=== PATIENT | female | born 1945 | race Caucasian/White ===

== ENCOUNTER → 2020-08-17 | Outpatient (CLI) | payer MEDICARE ==
[2020-08-17 08:16] VITALS: BP 139/71; PULSE 74; RESP 16; TEMP 98.2
--- NOTE | 2020-08-17 09:00 | P.GSHP ---
History of Present Illness H&P Date: 08/17/20 Chief Complaint: left breast cancer Rossi is a 74 year old white female seen in consultation for DR. Roberts regarding a left breast cancer. She felt at lump in her left breast about two months ago. She had a bilateral mammogram on 07-18-20 and this showed a 1.2 Cm left breast mass in the inner upper aspect. An ultrasound was done on addi same date which showed a 2.5 cm mass at 10 O Clock. A biopsy was done on 08-07-20 which was an invasive ductal carcinoma, ER/AZ positive, HER-2 negative. It has not changed in size since she noted it. In 2017 she had a stero biopsy done of the left breast which was negative for cancer. She also had a left breast open biopsy in her 30's which was negative for cancer. She has had no surgery on her right breast. Prior to the biopsy she had some minimal discomfort at the site of the nodularity, since the biopsy she has some ecchymosis in the breast. She did have swelling also after the biopsy which has decreased in size. [place] done and [id number]. Does not have any nipple discharge or skin changes. Caffeine:none nicotine: none flavio-bromine: occasional hormones: none Family History: mother: lung cancer smoker paternal aunt: ? type father: prostate cancer brother: prostate ancer Hormonal History: menarche: 16 G0 menopause: 53 BCP: none hormones: none Surgical History: bresat biopsy Medical History: shingles bladder infection Social History: smoke: none alcohol: none drugs: none - Constitutional Constitutional: Denies chills, Denies fever - EENT Comment: wears glasses Ears: bilateral: tinnitus Ears, nose, mouth and throat: Denies headache, Denies sore throat - Breasts Breasts: bilateral: as per HPI - Cardiovascular Cardiovascular: Denies chest pain, Denies shortness of breath - Respiratory Respiratory: Denies cough, Denies 7 - Gastrointestinal Gastrointestinal: Denies abdominal pain, Denies diarrhea, Denies nausea, Denies vomiting - Genitourinary (Female) Comment: UTI in recent past Genitourinary: Denies dysuria, Denies hematuria - Menstruation Menstruation: Reports postmenopausal - Musculoskeletal Comment: arthritis in hands - Integumentary Integumentary: Denies pruritus, Denies rash - Neurological Neurological: Denies numbness, Denies weakness - Psychiatric Psychiatric: Reports anxiety - Endocrine Endocrine: Denies fatigue, Denies weight change - Hematologic/Lymphatic Comment: low dose aspirin and vitamin E - Allergic/Immunologic Allergic/Immunologic: Reports as per HPI Medications and Allergies Home Medications Medication Instructions Recorded Confirmed Type Ascorbic Acid [Vitamin C] 1,000 mg PO BID 08/17/20 08/17/20 History Aspirin [Adult Low Dose Aspirin EC] 81 mg PO QAM 08/17/20 08/17/20 History Cholecalciferol [Vitamin D3 (25 25 mcg PO QAM 08/17/20 08/17/20 History Mcg = 1000 Iu)] Cyanocobalamin/Cobamamide [Vitamin 1 each SL DAILY 08/17/20 08/17/20 History B-12 5,000 Mcg Tab Sl] Vitamin E 1,000 unit PO QAM 08/17/20 08/17/20 History Allergies Allergy/AdvReac Type Severity Reaction Status Date / Time Sulfa (Sulfonamide Allergy Abdominal Unverified 08/17/20 07:33 Antibiotics) Pain Surgical - Exam BMI 22.2 - General well developed, well nourished, no distress - Eyes normal ocular movement - ENT normal pinna, normal nares - Neck no masses, trachea midline - Respiratory normal respiratory effort, clear to auscultation - Cardiovascular Rhythm: regular Heart Sounds: normal: S1, S2 - Abdomen Abdomen: soft, bowel sounds - Integumentary normal turgor - Neurologic no disoriented, no combative - Musculoskeletal normal gait - Psychiatric oriented to time, oriented to person, oriented to place, speech is normal, memory intact breast exam: BRA: 34B inspection: bilateral grade 2/3 ptosis palpation: Right breast: Multiple positional exam dense fibroglandular tissue fibrocystic disease no dominant masses or nodules of concern Right axilla: No adenopathy of concern Left breast: Multiple positional exam increased fullness at the 10 o'clock position approximately 2 cm in size, ecchymosis at site of biopsy, no evidence of infection, fibrocystic changes, no dominant masses or nodules of concern Left axilla: No adenopathy of concern Results Mammogram and ultrasound xrays examined with DR. Richard REview of medical records from Dr. Roberts Assessment and Plan Assessment: Impression: 1. [id number]-G2 left breast cancer 2. Very dense bilateral breast on mammogram 3. Abnormal left breast ultrasound 4. Family history of cancer Plan: 1. Breast MRI secondary to dense breast and unable to see lesion on mammogram in the left breast 2. presentation of case at tumor board 3. appointment with medical oncology 4. follow up after MRI CC: Dr. Roberts We have discussed the stage of the tumor which is a 1B, we have discussed treatment options of both the breast and the axilla. At this time the patient would prefer to have a lumpectomy if possible. She will be seen again following breast MRI and presentation of her case at tumor board. If possible I would like medical oncology to shrink the tumor prior to a lumpectomy secondary to the size of the tumor relative to her breast. Encounter 60 minutes, time spent in examination, review of records, and counselling.
== END ==
LOC: WWCWWP 07:15
PROVIDERS: ATTEND Surgery
DX: C50.912 Malignant neoplasm of unspecified site of left female breast (principal); Z17.0 Estrogen receptor positive status [ER+]; Z80.9 Family history of malignant neoplasm, unspecified

== ENCOUNTER → 2020-08-20 | Outpatient (CLI) | payer MEDICARE ==
--- NOTE | 2020-08-21 06:27 | BMR ---
EXAMINATION TYPE: MR breast BILAT wo/w con DATE OF EXAM: 08/20/2020 COMPARISON: Outside bilateral diagnostic 3-D mammogram July 18, 2020 BI-RADS 0. Outside left breas t ultrasound July 18, 2020 BI-RADS 4. HISTORY: Upper-inner quadrant of LT side-lump/mass, invasive ductal carcinoma on ultrasound-guided bi opsy July 31, 2020. TECHNIQUE: A series of fat and water weighted images in the long and short axis views of both breasts are obtained in conjunction with dynamic contrast MRI with subtraction technique. The patient was i njected with 5.0 mL intravenous Gadavist gadolinium contrast. Three-dimensional and additional post processing imaging is created on independent workstation and reviewed during official interpretation of this study. FINDINGS: Extremely dense fibroglandular tissue is redemonstrated throughout both breasts. T2 and STI R weighted images show no significant cystic change in either breast. There are symmetric prominent b ut subcentimeter benign-appearing bilateral axillary lymph nodes present on T1 nonfat saturated image s. Dynamic postcontrast imaging shows mild background enhancement. Delayed dynamic postcontrast imagi ng shows no suspicious internal mammary adenopathy. With regards to the right breast no suspicious skin thickening is seen. No pathologic enhancement or enhancing masses noted. The chest wall is intact. With regards to the left breast corresponding to mammogram and ultrasound and palpable abnormality th ere is 1.4 x 1.1 x 1.7 cm enhancing lesion subtraction series 701 image 428 and sagittal postcontrast series 704 image 273 at 10:00 position posterior depth with artifact from biopsy clip along the medi al anterior aspect that corresponds to recent biopsy-proven invasive ductal carcinoma. Computer measu rements 1.6 x 1.4 x 2.0 cm correlates slightly more accurate with recent ultrasound. There are some punctate areas of susceptibility artifact in the anterior outer aspect of left breast near nipple. There is additional more focal area of susceptibility artifact between 11 and 12:00 posi tion middle depth upper aspect left breast image 523 series 701. Dynamic postcontrast imaging shows s ome heterogeneous vague enhancement at this level. No definitive measurable lesion. More rim type enh ancement seen on delayed images measuring 1.2 x 0.9 cm image 21 series 801. I do not see correspondin g large dystrophic calcification on mammogram. Area of uncertain clinical significance. I would advis e targeted ultrasound evaluation, if negative would presume benign. No abnormal skin thickening is present. Chest wall is intact. Small size hiatal hernia is incidentally appreciated. IMPRESSION: Biopsy-proven malignancy left breast. Second area of concern left breast as noted above w arrants ultrasound evaluation. No MRI evidence for invasive malignancy right breast. No abnormal cass opathy clearly identified. BI-RADS 2 benign findings right breast BI-RADS 6 biopsy-proven cancer left breast. Recommendation: Ultrasound evaluation B zone 11 to 12:00 position to rule out second lesion, if negat jonh can proceed with surgical management of single biopsy-proven malignancy left breast.
== END | disposition home or self-care (01) ==
LOC: RADMRIMAIN 16:21
PROVIDERS: ATTEND Surgery
DX: C50.212 Malignant neoplasm of upper-inner quadrant of left female breast (principal)
CPT/HCPCS: C8937; C8908; A9585; 77049

== ENCOUNTER → 2020-08-31 | Outpatient (CLI) | payer MEDICARE ==
--- NOTE | 2020-09-03 14:21 | USB ---
Reason for exam: additional evaluation requested from prior study. History: Patient has history of breast cancer at age 74. Malignant ultrasound-guided core biopsy of the left breast, July 2020. Physical Findings: Nurse Summary: 1.5cm firm, fixed lump left breast 10 o'clock, bruising left lower inner quadrant from biopsy (nurse mj). US Breast Limited LT Left limited breast ultrasound including focal area of concern, retroareolar and axilla demonstrates a 0.5 x 0.3 x 0.8cm oval, hypoechoic to anechoic lesion at 11 o'clock and a 0.9 x 0.7 x 1.2cm oval, solid lesion at 11 o'clock. 10 o'clock biopsy proved cancer. These results were verbally communicated with the patient and result sheet given to the patient on 08/31/20. ASSESSMENT: Suspicious, BI-RAD 4 RECOMMENDATION: Ultrasound core biopsy of the left breast. Called office with mammographic findings and has scheduled an appointment for the patient for 09/28/20 at 11:[address] Salinas. Biopsy scheduled for 09/13/20 at 1:00. PRELIMINARY REPORT CALLED AND FAXED TO DR. SALINAS ON 09/03/20.
== END | disposition home or self-care (01) ==
LOC: RADUSWWP 13:44
PROVIDERS: ATTEND Surgery
DX: C50.212 Malignant neoplasm of upper-inner quadrant of left female breast (principal)

== ENCOUNTER → 2020-09-13 | Day surgery (SDC) | payer MEDICARE ==
[2020-09-13 12:14] VITALS: RESP 16
[2020-09-13 13:55] VITALS: BP 137/68; PULSE 80; TEMP 98.2
--- NOTE | 2020-09-13 14:23 | USB ---
EXAMINATION TYPE: US biopsy breast VAD LT DATE OF EXAM: 09/13/2020 CLINICAL HISTORY: C50.412 Malignant neoplasm of left breast. TECHNIQUE: Ultrasound guided vaccuum assisted core biopsy of left breast. COMPARISON: 08/31/2020 FINDINGS: The ultrasound guided core biopsy procedure was explained to the patient. The risks, benefits, alternatives were discussed. An informed consent was then obtained. Timeout was performed. The patient was placed in supine positioning for imaging and for the procedure. The overlying skin was prepped with betadine and sterilely draped in usual sterile fashion. Lidocaine 1% was used as anesthetic into the skin and deeper breast tissue up to area of concern in the breast. A small skin elizabeth was made with surgical scalpel. Under ultrasound guidance, a 12-gauge vacuum assisted biopsy device was used to obtain 4 core samples. Celeros was utilized. A biopsy clip was left in lesion. Coil clip was placed. Good hemostasis was obtained with direct pressure. Discharge instructions were discussed with the patient. The patient will follow up with the referring physician for results. Postprocedure mammogram: The patient was transferred to mammography for physician ordered post procedure mammogram for clip placement verification. The clip is in the expected region of the biopsy. The patient tolerated the procedure well without any immediate complication. The patient was discharged to home in stable condition. IMPRESSION: 1. Successful ultrasound guided biopsy left breast. Recommendations: 1. Recommendations are pending pathology results. Pathology Results: Malignant LEFT BREAST, ELEVEN O'CLOCK, CORE BIOPSY: Invasive ductal carcinoma, Grade 2 (see Surgical Pathology Cancer Case Summary and comment). Recommendation Surgical consult of the left breast. BROOKE
--- NOTE | 2020-09-13 14:23 | MM ---
EXAMINATION TYPE: US biopsy breast VAD LT DATE OF EXAM: 09/13/2020 CLINICAL HISTORY: C50.412 Malignant neoplasm of left breast. TECHNIQUE: Ultrasound guided vaccuum assisted core biopsy of left breast. COMPARISON: 08/31/2020 FINDINGS: The ultrasound guided core biopsy procedure was explained to the patient. The risks, benef its, alternatives were discussed. An informed consent was then obtained. Timeout was performed. The patient was placed in supine positioning for imaging and for the procedure. The overlying skin w as prepped with betadine and sterilely draped in usual sterile fashion. Lidocaine 1% was used as ane sthetic into the skin and deeper breast tissue up to area of concern in the breast. A small skin yasmany k was made with surgical scalpel. Under ultrasound guidance, a 12-gauge vacuum assisted biopsy device was used to obtain 4 core samples . Celeros was utilized. A biopsy clip was left in lesion. Coil clip was placed. Good hemostasis was obtained with direct pressure. Discharge instructions were discussed with the pa lynda. The patient will follow up with the referring physician for results. Postprocedure mammogram: The patient was transferred to mammography for physician ordered post proced ure mammogram for clip placement verification. The clip is in the expected region of the biopsy. The patient tolerated the procedure well without any immediate complication. The patient was dischar ged to home in stable condition. IMPRESSION: 1. Successful ultrasound guided biopsy left breast. Recommendations: 1. Recommendations are pending pathology results.
== END ==
LOC: RADUSWWP 11:59
PROVIDERS: ATTEND Surgery
DX: C50.412 Malignant neoplasm of upper-outer quadrant of left female breast (principal); Z17.0 Estrogen receptor positive status [ER+]
CPT/HCPCS: 88305; 88342; 88341; 77065; 19083; A4648; J2001

== ENCOUNTER → 2020-09-28 | Outpatient (CLI) | payer MEDICARE ==
[2020-09-28 11:34] VITALS: BP 147/74; PULSE 65; RESP 18; TEMP 97.7
--- NOTE | 2020-09-28 11:54 | P.PN ---
Subjective Progress Note Date: 09/28/20 Principal diagnosis: left breast cancer; multifocal disease; [id number]+Her2-G2 Rossi is a 74 year old white female seen in consultation for DR. Roberts in august regarding a left breast cancer. She felt at lump in her left breast about two months prior to that. She had a bilateral mammogram on 07-18-20 and this showed a 1.2 cm left breast mass in the inner upper aspect. An ultrasound was done on the same date which showed a 2.5 cm mass at 10 O Clock. A biopsy was done on 08-07-20 which was an invasive ductal carcinoma, ER/WA positive, HER-2 negative. It has not changed in size since she noted it. In 2016 she had a stero biopsy done of the left breast which was negative for cancer. She also had a left breast open biopsy in her 30's which was negative for cancer. She has had no surgery on her right breast. Prior to the biopsy she had some minimal discomfort at the site of the nodularity, since the biopsy she has some ecchymosis in the breast. She did have swelling also after the biopsy which has decreased in size. The biopsy was done on . She did not have any nipple discharge or skin changes. A breast MRI was done on 08-20-20. With regards to the right breast pathologic enhancement or enhancing masses were noted. With respect to the left breast a 1.4 x 1.7 cm enhancing lesion was noted at the 10 o'clock position posterior depth which had been biopsied prior was proven to be an invasive ductal carcinoma. There also noted to be some punctate areas of susceptibility artifact in the anterior outer aspect of the left breast. Additionally a 1.2 cm lesion was noted for which target ultrasound was recommended and biopsy recommended in the 11 to 12 o'clock position. The patient did undergo ultra sound for biopsy of the area of concern noted on MRI and 4120. This was positive for invasive ductal carcinoma as well. She has no complaints related to this. Had an appetite performed on the tumor and the Oncotype results were 28. She has been seen by medical oncology and the notes are reviewed; and she is going to undergo neoadjuvant chemotherapy. She is going to undergo TC. She will like to wait until after school is over and will start this the second week of October. She will have TC every 3 weeks for 4 cycles and nulesta after each cycle. Caffeine:none nicotine: none flavio-bromine: occasional hormones: none Family History: mother: lung cancer smoker paternal aunt: ? type father: prostate cancer brother: prostate ancer Hormonal History: menarche: 16 G0 menopause: 53 BCP: none hormones: none Surgical History: bresat biopsy Medical History: shingles bladder infection Social History: smoke: none alcohol: none drugs: none - Constitutional Constitutional: Denies chills, Denies fever - EENT Comment: wears glasses Ears: bilateral: tinnitus Ears, nose, mouth and throat: Denies headache, Denies sore throat - Breasts Breasts: bilateral: as per HPI - Cardiovascular Cardiovascular: Denies chest pain, Denies shortness of breath - Respiratory Respiratory: Denies cough - Gastrointestinal Gastrointestinal: Denies abdominal pain, Denies diarrhea, Denies nausea, Denies vomiting - Genitourinary (Female) Comment: UTI in recent past Genitourinary: Denies dysuria, Denies hematuria - Menstruation Menstruation: Reports postmenopausal - Musculoskeletal Comment: arthritis in hands - Integumentary Integumentary: Denies pruritus, Denies rash - Neurological Neurological: Denies numbness, Denies weakness - Psychiatric Psychiatric: Reports anxiety - Endocrine Endocrine: Denies fatigue, Denies weight change - Hematologic/Lymphatic Comment: low dose aspirin and vitamin E - Allergic/Immunologic Allergic/Immunologic: Reports as per HPI Objective - Vital Signs Vital signs: Vital Signs Temp 97.7 F 09/28/20 11:29 Pulse 65 09/28/20 11:29 Resp 18 09/28/20 11:29 BP 147/74 09/28/20 11:29 Pulse Ox 100 09/28/20 11:29 Intake & Output 09/27/20 09/28/20 09/28/20 18:59 06:59 18:59 Weight 47.627 kg - Constitutional General appearance: Present: average body habitus - EENT Eyes: Present: EOMI ENT: Present: hearing grossly normal - Neck Neck: Present: normal ROM - Respiratory Respiratory: bilateral: CTA - Cardiovascular Rhythm: regular Heart sounds: normal: S1, S2 - Integumentary Integumentary Comment(s): Achymosis lateral aspect of the left breast, small hematoma near biopsy site, no evidence of infection Integumentary: Present: normal turgor - Psychiatric Psychiatric: Present: A&O x's 3 Assessment and Plan Assessment: Impression: 1. left breast multifocal cancer 2. patient to have pre-op chemotherpay Plan: 1. pre-op chemotherapy 2. follow up in 1 1/2 months CC: Dr. Roberts
== END ==
LOC: WWCWWP 11:15
PROVIDERS: ATTEND Surgery
DX: C50.212 Malignant neoplasm of upper-inner quadrant of left female breast (principal); F41.9 Anxiety disorder, unspecified

== ENCOUNTER → 2020-11-30 | Outpatient (CLI) | payer MEDICARE ==
--- NOTE | 2020-11-30 15:45 | P.PN ---
Subjective Progress Note Date: 11/30/20 Principal diagnosis: invasive ductal left breast cancer left breast cancer; multifocal disease; [id number]+Her2-G2 Rossi is a 75 year old white female seen in consultation for DR. Roberts in august regarding a left breast cancer. She felt at lump in her left breast about two months prior to that. She had a bilateral mammogram on 07-18-20 and this showed a 1.2 cm left breast mass in the inner upper aspect. An ultrasound was done on the same date which showed a 2.5 cm mass at 10 O Clock. A biopsy was done on 08-07-20 which was an invasive ductal carcinoma, ER/MD positive, HER-2 negative. In 2016 she had a stero biopsy done of the left breast which was negative for cancer. She also had a left breast open biopsy in her 30's which was negative for cancer. She has had no surgery on her right breast. Prior to the biopsy she had some minimal discomfort at the site of the nodularity, since the biopsy she has some ecchymosis in the breast. She did have swelling also after the biopsy which has decreased in size. The biopsy was done on . She did not have any nipple discharge or skin changes. A breast MRI was done on 08-20-20. With regards to the right breast pathologic enhancement or enhancing masses were noted. With respect to the left breast a 1.4 x 1.7 cm enhancing lesion was noted at the 10 o'clock position posterior depth which had been biopsied prior was proven to be an invasive ductal carcinoma. There also noted to be some punctate areas of susceptibility artifact in the anterior outer aspect of the left breast. Additionally a 1.2 cm lesion was noted for which target ultrasound was recommended and biopsy recommended in the 11 to 12 o'clock position. The patient did undergo ultra sound for biopsy of the area of concern noted on MRI and 4120. This was positive for invasive ductal carcinoma as well. She has no complaints related to this. She had an oncotype performed on the tumor and the Oncotype results were 28. She has been seen by medical oncology and the notes are reviewed; and she is going to undergo neoadjuvant chemotherapy. She is going to undergo TC. She will like to wait until after school is over and will start this the second week of October. She will have TC every 3 weeks for 4 cycles and nulesta after each cycle. The patient states the Dr. Rubin has noticed that the tumors are shrinking. She has 2 more courses of chemotherapy[place] [address]. She also developed thrush on the treatment which has resolved at this [place] [id number] reviewed Caffeine:none nicotine: none flavio-bromine: occasional hormones: none Family History: mother: lung cancer smoker paternal aunt: ? type father: prostate cancer brother: prostate ancer Hormonal History: menarche: 16 G0 menopause: 53 BCP: none hormones: none Surgical History: breast biopsy Medical History: shingles bladder infection Social History: smoke: none alcohol: none drugs: none - Constitutional Constitutional: Denies chills, Denies fever - EENT Comment: wears glasses Ears: bilateral: tinnitus Ears, nose, mouth and throat: Denies headache, Denies sore throat - Breasts Breasts: bilateral: as per HPI - Cardiovascular Cardiovascular: Denies chest pain, Denies shortness of breath - Respiratory Respiratory: Denies cough - Gastrointestinal Gastrointestinal: Denies abdominal pain, Denies diarrhea, Denies nausea, Denies vomiting - Genitourinary (Female) Comment: UTI in recent past Genitourinary: Denies dysuria, Denies hematuria - Menstruation Menstruation: Reports postmenopausal - Musculoskeletal Comment: arthritis in hands - Integumentary Integumentary: Denies pruritus, Denies rash - Neurological Neurological: Denies numbness, Denies weakness - Psychiatric Psychiatric: Reports anxiety - Endocrine Endocrine: Denies fatigue, Denies weight change - Hematologic/Lymphatic Comment: low dose aspirin and vitamin E - Allergic/Immunologic Allergic/Immunologic: Reports as per HPI Objective - Vital Signs Vital signs: Intake & Output 11/29/20 11/30/20 11/30/20 18:59 06:59 18:59 Weight 48.988 kg - Exam BMI 23.4 - Constitutional General appearance: Present: average body habitus - EENT Eyes: Present: EOMI ENT: Present: hearing grossly normal - Neck Neck: Present: normal ROM - Respiratory Respiratory: bilateral: CTA - Cardiovascular Rhythm: regular Heart sounds: normal: S1, S2 - Gastrointestinal General gastrointestinal: Present: soft - Integumentary Integumentary: Present: normal turgor - Musculoskeletal Musculoskeletal: Present: gait normal - Psychiatric Psychiatric: Present: A&O x's 3, appropriate affect, intact judgment & insight - Additional findings Additional findings: Breast Exam: Bra: 36B inspection: bilateral grade 2/3 ptosis palpation: right breast: Multi-positional exam fibrocystic changes, no dominant masses or nodules of concern Right axilla: No adenopathy of concern Left breast: Mass 12:00 in the upper outer quadrant no longer feels attached to the pectoralis muscle appears to be smaller in size, no other dominant masses or nodules of concern Left axilla: No adenopathy of concern Assessment and Plan Assessment: Impression: 1. left breast multifocal cancer/ [id number]+Her2-G2 Plan: 1. Patient is scheduled for a left breast mastectomy on 2420 2. Medical clearance from Dr. Roberts 3. Patient to follow up here 01-24-21 4. Complete chemotherapy 5. Follow up sooner if any questions or concerns Cc: Dr. Roberts
[2020-11-30 15:50] VITALS: BP 150/71; PULSE 76; RESP 18; TEMP 98.4
== END ==
LOC: WWCWWP 14:58
PROVIDERS: ATTEND Surgery
DX: C50.912 Malignant neoplasm of unspecified site of left female breast (principal); Z17.0 Estrogen receptor positive status [ER+]; Z88.2 Allergy status to sulfonamides

== ENCOUNTER → 2021-01-16 | Outpatient (CLI) | payer MEDICARE ==
--- NOTE | 2021-01-22 11:37 | MM ---
Reason for exam: follow-up at short interval from prior study. Last mammogram was performed 4 months ago. History: Patient has history of breast cancer at age 74, history of other cancer, and is nulliparous. Malignant US biopsy breast VAD LT of the left breast, September 13, 2020. Malignant ultrasound-guided core biopsy of the left breast, July 2020. Benign excisional biopsy of the right breast, 2017. Benign excisional biopsy of the left breast. Physical Findings: Nurse Summary: 2cm nodule in the left breast at 9 o'clock and 11 o'clock (nurse db). MG 3D Diag Mammo W/Cad LT CC, MLO, and XCCL view(s) were taken of the left breast. Prior study comparison: September 13, 2020, left breast MG diagnostic mammo LT wo CAD. July 31, 2020, mammogram. July 18, 2020, mammogram. The breast tissue is extremely dense which could obscure a lesion on mammography. Previous mammotome biopsy in the left breast x 2. Patient's known cancers x 2 not identified. No significant new findings when compared with previous films. These results were verbally communicated with the patient and result sheet given to the patient on 01/16/21. ASSESSMENT: Incomplete: need additional imaging evaluation, BI-RAD 0 RECOMMENDATION: Ultrasound of the left breast. Manage patient on a clinical basis.
--- NOTE | 2021-01-22 11:40 | USB ---
Reason for exam: follow-up at short interval from prior study. History: Patient has history of breast cancer at age 74, history of other cancer, and is nulliparous. Malignant US biopsy breast VAD LT of the left breast, September 13, 2020. Malignant ultrasound-guided core biopsy of the left breast, July 2020. Benign excisional biopsy of the right breast, 2017. Benign excisional biopsy of the left breast. US Breast LT Left complete breast ultrasound includes all four quadrants, the retroareolar region and axilla. Finding demonstrates a 0.6 x 0.6 x 0.8cm known cancer, coil clip at 10 o'clock. 11 o'clock area not identified. These results were verbally communicated with the patient and result sheet given to the patient on 01/16/21. ASSESSMENT: Suspicious, BI-RAD 4 RECOMMENDATION: Surgical consultation of the left breast. (known cancer x 2) Called office with mammographic findings and has scheduled an appointment for the patient for 01/24/21 at 11:[address] Salinas. Biopsy scheduled for 01/29/21 at 10:30. PRELIMINARY REPORT CALLED AND FAXED TO DR. SALINAS ON 01/22/21.
== END | disposition home or self-care (01) ==
LOC: RADMAMWWP 13:31
PROVIDERS: ATTEND Surgery
DX: C50.212 Malignant neoplasm of upper-inner quadrant of left female breast (principal)
CPT/HCPCS: 77065; 76641; G0279; 77061

== ENCOUNTER → 2021-01-24 | Outpatient (CLI) | payer MEDICARE ==
[2021-01-24 11:59] VITALS: BP 140/58; PULSE 74; RESP 14; TEMP 98.2
--- NOTE | 2021-01-24 12:31 | P.PN ---
Subjective Progress Note Date: 01/24/21 Principal diagnosis: stage 1A left breast cancer invasive ductal left breast cancer left breast cancer; multifocal disease; [id number] Rossi is a 75 year old white female seen in consultation for DR. Roberts in august regarding a left breast cancer. She felt at lump in her left breast about two months prior to that. She had a bilateral mammogram on 07-18-20 and this showed a 1.2 cm left breast mass in the inner upper aspect. An ultrasound was done on the same date which showed a 2.5 cm mass at 10 O Clock. A biopsy was done on 08-07-20 which was an invasive ductal carcinoma, ER/OK positive, HER-2 negative. In 2016 she had a stero biopsy done of the left breast which was negative for cancer. She also had a left breast open biopsy in her 30's which was negative for cancer. She has had no surgery on her right breast. Prior to the biopsy she had some minimal discomfort at the site of the nodularity, since the biopsy she has some ecchymosis in the breast. She did have swelling also after the biopsy which has decreased in size. The biopsy was done on . She did not have any nipple discharge or skin changes. A breast MRI was done on 08-20-20. With regards to the right breast no pathologic enhancement or enhancing masses were noted. With respect to the left breast a 1.4 x 1.7 cm enhancing lesion was noted at the 10 o'clock position posterior depth which had been biopsied prior was proven to be an invasive ductal carcinoma. There also noted to be some punctate areas of susceptibility artifact in the anterior outer aspect of the left breast. Additionally a 1.2 cm lesion was noted for which target ultrasound was recommended and biopsy recommended in the 11 to 12 o'clock position. The patient did undergo ultra sound for biopsy of the area of concern noted on MRI and 4120. This was positive for invasive ductal carcinoma as well. She has no complaints related to this. She had an oncotype performed on the tumor and the Oncotype results were 28. She has been seen by medical oncology and the notes are reviewed; and she is going to undergo neoadjuvant chemotherapy. She is going to undergo TC. She will like to wait until after school is over and will start this the second week of October. She will have TC every 3 weeks for 4 cycles and nulesta after each cycle. The patient states the Dr. Rubin has noticed that the tumors are shrinking. She has 2 more courses of chemotherapy. She was started on TC on . She also developed thrush on the treatment which has resolved at this time. Note from Dr. Rubin on 01-09-21 reviewed; at that time there was some concern that the patient may also have a lymphoblastic lymphoma versus a Walderstrom macroglobulinemia, this was secondary to significantly elevated IgM Monoclonal protein. The patient's last chemotherapy infusion was on December 24. Hemoglobin: 10, white blood cell count: 12.7, platelet count 236 this is blood work from [id number] On 01-17-21 noted a swelling about the gumline on the right side. This became progressively swollen including her cheek and/that she could not open her eyes to see. She was seen by the dentist on [id number] and given a prescription for Augmentin. She had a partial cleaning that day as well. She was told she has an abscess. She continues to have swelling of the right side of her face however this has decreased. She is presently on antibiotic therapy this will not be completed and tell Thursday of next week. She did have a left breast ultrasound performed on which revealed a 0.6 x 0.8 known carcinoma at the 10 o'clock position 11:00 area was not noted; it was felt that the tumor had decreased in size secondary to the neoadjuvant chemotherapy. She also had a left breast mammogram done showing the breast tissue to be extremely dense. Caffeine:none nicotine: none flavio-bromine: occasional hormones: none Family History: mother: lung cancer smoker paternal aunt: ? type father: prostate cancer brother: prostate ancer Hormonal History: menarche: 16 G0 menopause: 53 BCP: none hormones: none Surgical History: breast biopsy Medical History: shingles bladder infection Social History: smoke: none alcohol: none drugs: none - Constitutional Constitutional: Denies chills, Denies fever - EENT Comment: wears glasses Ears: bilateral: tinnitus Ears, nose, mouth and throat: Denies headache, Denies sore throat - Breasts Breasts: bilateral: as per HPI - Cardiovascular Cardiovascular: Denies chest pain, Denies shortness of breath - Respiratory Respiratory: Denies cough - Gastrointestinal Gastrointestinal: Denies abdominal pain, Denies diarrhea, Denies nausea, Denies vomiting - Genitourinary (Female) Comment: UTI in recent past Genitourinary: Denies dysuria, Denies hematuria - Menstruation Menstruation: Reports postmenopausal - Musculoskeletal Comment: arthritis in hands - Integumentary Integumentary: Denies pruritus, Denies rash - Neurological Neurological: Denies numbness, Denies weakness - Psychiatric Psychiatric: Reports anxiety - Endocrine Endocrine: Denies fatigue, Denies weight change - Hematologic/Lymphatic Comment: low dose aspirin and vitamin E - Allergic/Immunologic Allergic/Immunologic: Reports as per HPI Objective - Vital Signs Vital signs: Vital Signs Temp 98.2 F 01/24/21 11:56 Pulse 74 01/24/21 11:56 Resp 14 01/24/21 11:56 BP 140/58 01/24/21 11:56 Pulse Ox 97 01/24/21 11:56 Intake & Output 01/23/21 01/24/21 01/24/21 18:59 06:59 18:59 Weight 48.988 kg - Constitutional General appearance: Present: cooperative - EENT ENT: Present: hearing grossly normal - Respiratory Respiratory: bilateral: CTA - Cardiovascular Heart sounds: normal: S1, S2 - Integumentary Integumentary Comment(s): swollen right cheek/tender - Musculoskeletal Musculoskeletal: Present: gait normal - Psychiatric Psychiatric: Present: A&O x's 3, appropriate affect, intact judgment & insight Assessment and Plan Assessment: Impression: shingles bladder infection left breast multifocal cancer/completed neoadjuvant chemotherapy 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 discussed the case with her dentist he is going to see her next week she is going to complete her antibiotic course and there is a question whether the tooth will need to be pulled or not 2. Left mastectomy with sentinel node biopsy, sentinel node mapping left side, possible axillary node dissection 3. Secondary to the abscess in her tooth the surgery will be postponed Cc: Dr. Roberts
== END | disposition home or self-care (01) ==
LOC: WWCWWP 11:48
PROVIDERS: ATTEND Surgery
DX: Z53.9 Procedure and treatment not carried out, unspecified reason (principal)

== ENCOUNTER → 2021-02-08 | Outpatient (CLI) | payer MEDICARE ==
[2021-02-08 13:06] VITALS: BP 112/65; PULSE 65; RESP 18; TEMP 98.4
--- NOTE | 2021-02-08 13:48 | P.PN ---
Progress Note - Text Progress Note Date: 02/08/21 Rossi had some questions regarding a contralateral prophylactic mastectomy. I have gone over the risks and benefits with her and her friend. At this time I do not see that there is a survival benefit but there is an increased risk of postoperative complications. After thorough discussion lasting approximately 20 minutes she has decided to forgo the contralateral mastectomy.
== END | disposition home or self-care (01) ==
LOC: WWCWWP 12:23
PROVIDERS: ATTEND Surgery
DX: Z53.9 Procedure and treatment not carried out, unspecified reason (principal)

== ENCOUNTER 2021-02-19 11:33 | Observation (INO) | payer MEDICARE ==
[2021-02-11 18:18] VITALS: BMI 22.1
[~2021-02-19 11:33] MED LIST: HEPARIN SODIUM,PORCINE/PF 5,000 UNIT/0.5 ML SYRINGE SQ PRN; HYDROmorphone 0.5 MG/0.5 ML SYRINGE IVP PRN; LACTATED RINGERS 1,000 ML IV SCH; LIDOCAINE 1% (10MG/ML) FOR IV START INTRADERMA PRN; ONDANSETRON 4 MG/2 ML VIAL IVP ONE; Pre Op ABX Message 1 EACH MISC MISCELLANE ONE
[2021-02-19] MEDS ORDERED: ALPRAZolam 0.25 MG TAB ONE (12:32)
[2021-02-19] MEDS ORDERED: MIDAZOLAM 2 MG/2 ML VIAL IVP ONE (12:59)
--- NOTE | 2021-02-19 13:40 | P.NAPBC ---
NAPBC Queries - NAPBC Queries Was patient's case review presented at [facility] tumor board? If no, comment.: Yes Was patient's pathology reviewed at [facility]? If no, comment.: Yes Was breast conservation surgery offered? If no, comment.: No (multifocal disease) Was sentinel node biopsy offered? If no, comment.: Yes ( patient status post neoadjuvant therapy and will use dual tracer) Was diagnosis confirmed by percutaneous core biopsy? If no, comment.: Yes Is patient mastectomy patient?: Yes Was a preop referral to reconstructive surgeon offered?: No Clinical Stage: stage IA multifocal left breast cancer
[2021-02-19] MEDS ORDERED: ceFAZolin 1,000 MG VIAL ONE (14:04)
[2021-02-19] MEDS ORDERED: SODIUM CHLORIDE 0.9% 100 ML BAG ONE (14:04)
[2021-02-19] MEDS ORDERED: fentaNYL (PF) 50 MCG/ML 2 ML AMP ONE (14:04)
[2021-02-19] MEDS ORDERED: SUCCINYLCHOLINE CHLORIDE 100 MG/5 ML SYR IV ONE (14:04)
[2021-02-19] MEDS ORDERED: MIDAZOLAM 2 MG/2 ML VIAL ONE (14:04)
[2021-02-19] MEDS ORDERED: PROPOFOL 10 MG/ML 20 ML VIAL IV ONE (14:04)
[2021-02-19] MEDS ORDERED: METHYLENE BLUE 10 MG/ML (10 ML VIAL) INJ ONE (15:01)
--- NOTE | 2021-02-19 15:22 | NM ---
EXAMINATION TYPE: NM sentinel node injection DATE OF EXAM: 02/19/2021 COMPARISON: NONE INDICATION: Abnormal mammogram. Informed consent was obtained. A timeout was performed. The area around the left nipple was cleansed with alcohol. In a single dose, a total of 508 uCi José Miguel hnetium 99m Tilmanocept was injected. The patient tolerated the procedure very well. IMPRESSIONS: 1. Successful injection for sentinel node evaluation.
[2021-02-19] MEDS ORDERED: LACTATED RINGERS 1,000 ML IV ONE (15:52)
[2021-02-19] MEDS ORDERED: ONDANSETRON 4 MG/2 ML VIAL IVP PRN (15:53)
[2021-02-19] MEDS ORDERED: NALOXONE 0.4 MG/ML 1 ML VIAL IV PRN (15:53)
--- NOTE | 2021-02-19 15:53 | P.OP ---
Date of Procedure: 02/19/21 Preoperative Diagnosis: Left breast multifocal carcinoma Postoperative Diagnosis: Same Procedure(s) Performed: Left mastectomy, sentinel node mapping, sentinel node biopsy, resection of superficial axillary tissue Anesthesia: GAYLA Surgeon: Vivian Salinas Estimated Blood Loss (ml): 45 IV fluids (ml): 500 Pathology: other (Breast tissue, axillary tissue, sentinel lymph nodes) Condition: stable Disposition: same day Indications for Procedure: Left breast multifocal carcinoma Operative Findings: Fibrofatty left breast tissue, sentinel lymph nodes 3 Description of Procedure: Rossi is a 75-year-old white female who was diagnosed with multifocal left breast invasive ductal carcinoma. After discussion she opted for left breast mastectomy. She underwent neoadjuvant chemotherapy. Secondary to the neoadjuvant chemotherapy to tracer was placed for sentinel node evaluation. Prior to coming to the operating room radioactive tracer was injected. The patient was brought to the operating room and following induction of anesthesia the neoprobe was used to evaluate the axilla. Increased radioactivity was identified. Additionally 10 mL of half-strength methylene blue was injected in the periareolar area and the breast was massaged for 3 minutes. The breast and axilla were then prepped and draped in a sterile fashion. The mastectomy was performed initially. Superior skin flap was developed using the electrocautery device as well as the Harmonic scalpel. Following this the inferior skin flap was developed. The breast was removed from medial to lateral being careful to maintain hemostasis using the electrocautery device as well as the Harmonic scalpel. In the axillary border the breast was removed. The axilla was then evaluated. Using the neoprobe and following the lymphatic 3 lymph nodes were identified. The first had a 10 second count of [id number], the second a 10 second count of 960, and a third 10 second count of 5379. The background radioactivity after removal of these nodes was 79. No additional radioactive or blue lymph nodes were identified. The lymph node with the highest radioactive count was sent for frozen section evaluation and this was negative for metastatic disease. Evaluation of the axilla revealed the thoracodorsal and long thoracic nerves as well as the axillary vein. The axillary tissues were very minimal in this area and had been swept inferiorly and were removed. No additional lymph nodes of concern were identified. 2 DOYLE drains were placed. These were secured in place using nylon suture. The subcutaneous tissue was closed using 3-0 Vicryl suture. This is followed by closure of the skin with hakeem. The patient tolerated the procedure in stable condition. All instruments and sponge counts were correct at the end of the case.
[2021-02-19] MEDS ORDERED: ONDANSETRON 4 MG/2 ML VIAL IVP ONE (16:30)
[2021-02-19] MEDS ORDERED: HEPARIN SODIUM,PORCINE/PF 5,000 UNIT/0.5 ML SYRINGE SQ SCH (18:00)
[2021-02-19] MEDS: HEPARIN SODIUM,PORCINE/PF 5,000 UNIT/0.5 ML SYRINGE SQ SCH (21:15)
[2021-02-19] MEDS: DEXTROSE 5%-0.45% NACL 1,000 ML IV SCH (22:44)
--- NOTE | 2021-02-19 22:46 | P.CONS ---
History of Present Illness - Reason for Consult Consult date: 02/19/21 Medical management Requesting physician: Vivian Salinas - Chief Complaint Breast surgery - History of Present Illness Consultation: This is a pleasant 75-year-old patient who follows that Dr. Archie Roberts. Patient was diagnosed with multifocal left breast invasive ductal carcinoma. Patient decided to go for left mastectomy. She underwent neoadjuvant chemotherapy. Nam howell underwent left mastectomy sentinel node mapping and sentinel node biopsy resection of superficial axillary tissue. She has some pain at the operative site. Also some nausea earlier. On clear liquids. Patient is arthritic pain in the joints. Has decreased scalp area from chemotherapy. Review of systems: GEN.: Tired EYES: None HEENT: Decreased scalp hair NECK: None RESPIRATORY: None CARDIOVASCULAR: None GASTROINTESTINAL: Nausea GENITOURINARY: None MUSCULOSKELETAL: Joint pains 50 the hands] LYMPHATICS: None HEMATOLOGICAL: None PSYCHIATRY: None NEUROLOGICAL: None Past medical history to include: Invasive DrAugustus breast cancer, osteoarthritis, lumbar compression fracture Social history: No history of smoking or alcohol. Family history: Prostate cancer, intracranial aneurysm, TB Physical examination: VITAL SIGNS: 97.3, 64, 16, 159 T 72, 92% room air GENERAL: BMI 21.7, laying in bed, awake, tired. EYES: Pupils equal. Conjunctiva normal. HEENT: External appearance of nose and ears normal, oral cavity grossly normal. Decreased scalp hair CHEST wall: Dressing over the chest wall, with Chong wrap NECK: JVD not raised; masses not palpable. HEART: First and second heart sounds are normal; no edema. LUNGS: Respiratory rate normal; clear to auscultation. ABDOMEN: Soft, nontender, liver spleen not palpable, no masses palpable. PSYCH: Alert and oriented x3; mood and affect normal. NEUROLOGICAL: Cranial nerves grossly intact; no facial asymmetry, power and sensation grossly intact. 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 IV fluids. Pain medications. Diet advanced as tolerated. Care was discussed with the patient. Questions answered. Thank you Dr. Jose Mo Past Medical History Past Medical History: Cancer Additional Past Medical History / Comment(s): left breast invasive carcinoma 07/31/20;with chemo last tx 12/24/20. chronic uti's; shingles bladder & rectum ( April 2020) ; osteoporosis., hx anemia, states possible blood cancer (waldenstrom macroglobulinemia) -Dr Rubin will do testing after breast surgery., lower back/tailbone compressed discs. History of Any Multi-Drug Resistant Organisms: None Reported Past Surgical History: Breast Surgery Additional Past Surgical History / Comment(s): left breast malignant biopsy 07/31/20; benign right breast biopsy 2017; approx late s/early left breast excisional biopsy; Past Anesthesia/Blood Transfusion Reactions: Previous Problems w/ Anesthesia Additional Past Anesthesia/Blood Transfusion Reaction / Comm: took along time to wake up. Past Psychological History: Anxiety Smoking Status: Never smoker Past Alcohol Use History: None Reported Past Drug Use History: None Reported - Past Family History Father Family Medical History: Cancer, Prostate Disorder Additional Family Medical History / Comment(s): Prostate cancer; intracrainal aneurysm; history of TB. Mother Family Medical History: Cancer, Congestive Heart Failure (CHF), Myocardial Infarction (ND) Additional Family Medical History / Comment(s): Lung cancer; Brother(s) Family Medical History: Cancer Additional Family Medical History / Comment(s): prostate cancer Medications and Allergies Home Medications Medication Instructions Recorded Confirmed Type No Known Home Medications 02/11/21 02/11/21 History Allergies Allergy/AdvReac Type Severity Reaction Status Date / Time Sulfa (Sulfonamide Allergy Abdominal Verified 02/19/21 17:55 Antibiotics) Pain Physical Exam Vitals: Vital Signs Temp Pulse Pulse Resp BP Pulse Ox 02/19/21 21:58 57 L 123/60 96 02/19/21 19:44 69 16 136/67 93 L 02/19/21 19:14 69 16 143/69 93 L 02/19/21 18:44 59 L 16 149/62 94 L 02/19/21 18:14 64 16 159/72 92 L 02/19/21 17:59 62 16 149/74 91 L 02/19/21 17:50 97.3 F L 77 18 160/75 94 L 02/19/21 17:12 78 16 161/75 99 02/19/21 16:57 69 16 149/71 99 02/19/21 16:42 72 16 153/71 100 02/19/21 16:27 60 16 153/71 100 02/19/21 16:13 58 L 16 105/52 97 02/19/21 15:58 96.8 F L 64 16 106/51 96 02/19/21 13:14 78 16 151/67 95 02/19/21 12:14 98.1 F 71 16 157/70 98 Intake and Output 02/19/21 02/19/21 02/19/21 06:59 14:59 22:59 Intake Total 500 1180 Output Total 105 Balance 500 1075 Intake: IV 500 1150 Oral 30 Output: Urine 100 Estimated Blood Loss 5 Other: Voiding Method Toilet Weight 47 kg
[2021-02-20] MEDS: DEXTROSE 5%-0.45% NACL 1,000 ML IV SCH ×2 (03:02→20:10)
[2021-02-20] MEDS: HEPARIN SODIUM,PORCINE/PF 5,000 UNIT/0.5 ML SYRINGE SQ SCH ×3 (03:03→21:06)
[2021-02-20] MEDS: MORPHINE SULFATE 4 MG/ML SYRINGE IV PRN (03:03)
[2021-02-20 08:55] LABS: Basophils % (A) 0 %; Eosinophils # (A) 0.1 k/uL (0-0.7); Eosinophils % (A) 1 %; HCT 30.6 % (34.0-46.0); HGB 10.1 gm/dL (11.4-16.0); Lymphocytes # (A) 1.6 k/uL (1.0-4.8); Lymphocytes % (A) 21 %; MCH 32.9 pg (25.0-35.0); MCHC 32.9 g/dL (31.0-37.0); MCV 99.9 fL (80.0-100.0); Mean Platelet Volume 9.9; Monocytes # (A) 0.5 k/uL (0-1.0); Monocytes % (A) 7 %; Neutrophils # (A) 5.4 k/uL (1.3-7.7); Neutrophils % (A) 70 %; Platelet Count 191 k/uL (150-450); RBC 3.07 m/uL (3.80-5.40); RDW 12.4 % (11.5-15.5); WBC 7.7 k/uL (3.8-10.6)
--- NOTE | 2021-02-20 21:48 | P.PN ---
Progress Note - Text Progress Note Date: 02/20/21 - Chief Complaint Breast surgery Consultation: This is a pleasant 75-year-old patient who follows that Dr. Archie Roberts. Patient was diagnosed with multifocal left breast invasive ductal carcinoma. Patient decided to go for left mastectomy. She underwent neoadjuvant chemotherapy. Patient underwent left mastectomy sentinel node mapping and sentinel node biopsy resection of superficial axillary tissue. She has some pain at the operative site. Also some nausea earlier. On clear liquids. has arthritic pain in the joints. Has decreased scalp hair from chemotherapy. February 20: Doing much better. tolerated breakfast. No nausea vomiting. Pain is controlled. Has 2 DOYLE drains. Looking forward to go home. Has been up to the bathroom. Hemoglobin is 10.2. Surgeon is decided to watch it for another 24 hours. Review of systems: Was done for constitutional, cardiovascular, GI, pulmonary. relevant finding as above Active Medications Heparin Sodium (Porcine) (Heparin Sodium,Porcine/Pf 5,000 Unit/0.5 Ml Syringe) 5,000 unit SQ Q8H [facility] Last Admin: 02/20/21 21:06 Dose: 5,000 unit Documented by: Dextrose/Sodium Chloride (Dextrose 5%-1/2ns Iv Soln) 1,000 mls @ 75 mls/hr IV .[id number] [facility] Stop: 03/21/21 16:01 Last Admin: 02/20/21 20:10 Dose: Not Given Documented by: Lidocaine HCl (Lidocaine 1% (10mg/Ml) For Iv Start) 0.1 ml INTRADERMA PER PROTOCOL PRN PRN Reason: IV Start Stop: 03/21/21 05:38 Morphine Sulfate (Morphine Sulfate 4 Mg/Ml Syringe) 4 mg IV Q4HR PRN PRN Reason: Severe Pain Stop: 03/21/21 15:54 Last Admin: 02/20/21 03:03 Dose: 4 mg Documented by: Naloxone HCl (Naloxone 0.4 Mg/Ml 1 Ml Vial) 0.2 mg IV Q2M PRN PRN Reason: Opioid Reversal Stop: 03/21/21 15:54 Ondansetron HCl (Ondansetron 4 Mg/2 Ml Vial) 4 mg IVP Q8HR PRN PRN Reason: Nausea And Vomiting Stop: 03/21/21 15:54 Past medical history to include: Invasive DrAugustus breast cancer, osteoarthritis, lumbar compression fracture Social history: No history of smoking or alcohol. Family history: Prostate cancer, intracranial aneurysm, TB Physical examination: VITAL SIGNS: 98, 74, 16, 125-61, 97% room air GENERAL: BMI 21.7, laying in bed, awake, tired. EYES: Pupils equal. Conjunctiva normal. HEENT: Decreased scalp hair CHEST wall: Dressing over the chest wall, with Chong wrap. DOYLE drain 2 NECK: JVD not raised; masses not palpable. HEART: First and second heart sounds are normal; no edema. LUNGS: Respiratory rate normal; clear to auscultation. ABDOMEN: Soft, nontender, liver spleen not palpable, no masses palpable. PSYCH: Alert and oriented x3; mood and affect normal. 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 He is being held by surgery for another 24 hours to repeat hemoglobin. Care was discussed with the patient. Start iron supplement. Thank you Dr. Jose Mo
[2021-02-20] MEDS: FERROUS SULFATE 325 MG TAB PO SCH (22:20)
[2021-02-21] MEDS ORDERED: BENZOCAINE/MENTHOL LOZENG 1 EACH LOZENGE MUCOUS MEM PRN (01:09)
[2021-02-21] MEDS: HEPARIN SODIUM,PORCINE/PF 5,000 UNIT/0.5 ML SYRINGE SQ SCH (05:28)
[2021-02-21] MEDS: MORPHINE SULFATE 4 MG/ML SYRINGE IV PRN (05:37)
[2021-02-21 08:55] VITALS: BP 137/64; PULSE 71; RESP 16; TEMP 97.3
[2021-02-21] MEDS: FERROUS SULFATE 325 MG TAB PO SCH (09:23)
--- NOTE | 2021-02-21 10:32 | P.PN ---
Subjective Progress Note Date: 02/21/21 Principal diagnosis: Postop day #2 left breast mastectomy The patient is a 75-year-old white female postop day #2 left breast mastectomy. At this time she is doing well and is ready for discharge. Objective - Vital Signs Vital signs: Vital Signs Temp 97.3 F L 02/21/21 08:06 Pulse 71 02/21/21 08:06 Resp 16 02/21/21 08:06 BP 137/64 02/21/21 08:06 Pulse Ox 96 02/21/21 08:06 Intake & Output 02/20/21 02/21/21 02/21/21 18:59 06:59 18:59 Intake Total 500 900 Output Total 65 50 Balance 435 850 Weight 47 kg Intake: Intake, IV Titration 900 Amount Dextrose 5%-0.45% NaCl 1, 900 000 ml @ 75 mls/hr IV . [id number] [facility] Rx#:[id number] Oral 500 Output: Drainage 65 50 #1 45 25 #2 20 25 Other: Voiding Method Toilet # Voids 1 3 1 - Constitutional General appearance: Present: cooperative - EENT Eyes: Present: EOMI ENT: Present: hearing grossly normal - Neck Neck: Present: normal ROM - Respiratory Respiratory: bilateral: CTA - Cardiovascular Heart sounds: normal: S1, S2 - Integumentary Integumentary Comment(s): Incision clean and dry DOYLE drains serous output Total 15 mL - Musculoskeletal Musculoskeletal: Present: gait normal - Psychiatric Psychiatric: Present: A&O x's 3, appropriate affect, intact judgment & insight - Labs CBC & Chem 7: 02/20/21 08:00 Assessment and Plan Assessment: Impression/plan: 1. Patient postop day #2 left breast mastectomy doing well at this time plan for discharge to be followed by Dr. Garcia next week
--- NOTE | 2021-02-21 10:34 | P.DS ---
Providers Date of admission: 02/21/21 07:20 Attending physician: Vivian Salinas Consults: 02/19/21 15:58 Consult Physician Routine Consulting Provider: Selwyn Workman Consult Reason/Comments: medical managment Do you want consulting provider notified?: Yes Primary care physician: Magaly Roberts Health Concerns: [facility] [phone] Plan - Discharge Summary Discharge Rx Participant: Yes New Discharge Prescriptions: No Action No Known Home Medications Discharge Medication List No Known Home Medications 02/11/21 [History] Follow up Appointment(s)/Referral(s): [facility], [NON-STAFF] - 1 Week Vivian Salinas MD [STAFF PHYSICIAN] - 1 Week Activity/Diet/Wound Care/Special Instructions: Do not drive until seen by Dr. Garcia Teaching patient drain care Patient may shower after 48 hours Keep Chong wrap on at all times Discharge Disposition: HOME WITH HOME HEALTH SERVICES
[2021-02-21 11:17] LABS: Basophils % (A) 1 %; Eosinophils # (A) 0.2 k/uL (0-0.7); Eosinophils % (A) 3 %; HCT 36.4 % (34.0-46.0); Lymphocytes # (A) 1.3 k/uL (1.0-4.8); Lymphocytes % (A) 24 %; MCH 33.6 pg (25.0-35.0); MCV 101.8 fL (80.0-100.0); Monocytes # (A) 0.5 k/uL (0-1.0); Monocytes % (A) 8 %; Neutrophils # (A) 3.6 k/uL (1.3-7.7); Neutrophils % (A) 63 %; Platelet Count 200 k/uL (150-450); RBC 3.58 m/uL (3.80-5.40); RDW 12.4 % (11.5-15.5); WBC 5.7 k/uL (3.8-10.6)
[2021-02-21] MEDS: DEXTROSE 5%-0.45% NACL 1,000 ML IV SCH (11:21)
--- NOTE | 2021-02-22 00:03 | P.PN ---
Progress Note - Text Progress Note Date: 02/21/21 - Chief Complaint Breast surgery Consultation: This is a pleasant 75-year-old patient who follows that Dr. Archie Roberts. Patient was diagnosed with multifocal left breast invasive ductal carcinoma. Patient decided to go for left mastectomy. She underwent neoadjuvant chemotherapy. Patient underwent left mastectomy sentinel node mapping and sentinel node biopsy resection of superficial axillary tissue. She has some pain at the operative site. Also some nausea earlier. On clear liquids. has arthritic pain in the joints. Has decreased scalp hair from chemotherapy. February 20: Doing much better. tolerated breakfast. No nausea vomiting. Pain is controlled. Has 2 DOYLE drains. Looking forward to go home. Has been up to the bathroom. Hemoglobin is 10.2. Surgeon is decided to watch it for another 24 hours. February 21: Doing well. Oral intake good. DOYLE drain in place. Feeling well. Pain control. Review of systems: Was done for constitutional, cardiovascular, GI, pulmonary. relevant finding as above Current medications reviewed in today's electronic records Past medical history to include: Invasive [facility] breast cancer, osteoarthritis, lumbar compression fracture Social history: No history of smoking or alcohol. Family history: Prostate cancer, intracranial aneurysm, TB Physical examination: VITAL SIGNS: 97.3, 71, 16, 1 37 x 64, 96% room air GENERAL: laying in bed, awake, tired. EYES: Pupils equal. Conjunctiva normal. HEENT: Decreased scalp hair CHEST wall: Dressing over the chest wall, with Chong wrap. DOYLE drain 2 NECK: JVD not raised; masses not palpable. HEART: First and second heart sounds are normal; no edema. LUNGS: Respiratory rate normal; clear to auscultation. 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 Doing well. She to follow-up with PCP. Take iron supplement.. Thank you Dr. Jose Mo
== END 2021-02-21 12:50 | disposition home health service (06) ==
LOC: OR 11:33 → 6PED 16:36 → OR 02-21 06:52 → 6PED 02-21 07:20
PROVIDERS: ADMIT Surgery; ATTEND Surgery
DX: C50.912 Malignant neoplasm of unspecified site of left female breast (principal); D62 Acute posthemorrhagic anemia; R11.0 Nausea; M19.91 Primary osteoarthritis, unspecified site; G89.29 Other chronic pain; M81.0 Age-related osteoporosis without current pathological fracture; M54.5 Low back pain; L65.9 Nonscarring hair loss, unspecified
CPT/HCPCS: 19307; 38525; 85025 ×2; 88342; 88331; 88307; 88341; 38792; G0378; A9520; J2250; J2270 ×2; J2405; J0690; Q9968; J3010; J0330; J2704; J1170; J1644 ×3; 88309

== ENCOUNTER → 2021-02-28 | Outpatient (CLI) | payer MEDICARE ==
[2021-02-28 10:41] VITALS: BP 138/65; PULSE 77; RESP 16; TEMP 97.7
--- NOTE | 2021-02-28 10:49 | P.PN ---
Progress Note - Text Progress Note Date: 02/28/21 Rossi is a 75-year-old white female status post left breast [place]aste[place] [id number]. All sentinel nodes were negative for metastatic disease. The mastectomy specimen revealed multifocal invasive moderately differentiated ductal carcinoma grade 2. The patient's greatest dimension of invasive cancer measured 9 mm. All margins were negative. All lymph nodes were negative for tumor. Physical examination: Lungs clear: Heart: Regular rate and rhythm Incision: Clean and dry DOYLE output less than 40 mL per day for each drain serous in nature There is a small amount of redundant skin medially however the patient states this does not bother her Impression: Patient doing well post mastectomy Pathology all margins negative Plan: Follow-up with medical oncology Follow-up in 4 months Yohana and drains to be removed today CC: Dr. Roberts
== END | disposition home or self-care (01) ==
LOC: WWCWWP 10:22
PROVIDERS: ATTEND Surgery
DX: Z53.9 Procedure and treatment not carried out, unspecified reason (principal)

== ENCOUNTER → 2021-03-07 | Outpatient (CLI) | payer MEDICARE ==
--- NOTE | 2021-03-07 13:09 | P.PN ---
Progress Note - Text Progress Note Date: 03/07/21 left breast multifocal invasive ductal cancer [id number]+Her2-G2 Rossi is a 75-year-old white female status post left breast mastectomy and sentinel node biopsy on 9720. All sentinel nodes were negative for metastatic disease. The mastectomy specimen revealed multifocal invasive moderately differentiated ductal carcinoma grade 2. The patient's greatest dimension of invasive cancer measured 9 mm. All margins were negative. All lymph nodes were negative for tumor. Physical examination: Incision: Clean and dry small seroma limited mobility of the left arm There is a small amount of redundant skin medially however the patient states this does not bother her Impression: Patient doing well post mastectomy Pathology all margins negative Plan: Follow-up with medical oncology Follow-up in 4 months Yohana to be removed right breast mammogram in 2021 patient given exercises for left arm, she will with any concerns, she has declined physical therapy at this time CC: Dr. Roberts
[2021-03-07 13:41] VITALS: BP 137/68; PULSE 75; RESP 16; TEMP 98
== END | disposition home or self-care (01) ==
LOC: WWCWWP 12:38
PROVIDERS: ATTEND Surgery
DX: Z53.9 Procedure and treatment not carried out, unspecified reason (principal)

== ENCOUNTER → 2021-07-12 | Outpatient (CLI) | payer MEDICARE ==
[2021-07-12 10:27] VITALS: BP 149/67; PULSE 78; RESP 18; TEMP 97.8
--- NOTE | 2021-07-12 11:00 | P.PN ---
Subjective Progress Note Date: 07/12/21 Principal diagnosis: left breast invasive ductal cancer Stage IB [id number]-G2 Rossi is a 75 -year-old white female who initially presented with a palpable mass in her left breast. She had noted this around March 2020. Diagnostic mammograms on July 2020 revealed a suspicious lesion in the upper inner quadrant of the left breast posterior depth. Ultrasound identified a 2.2 x 2.5 cm mass. On core biopsy of the left breast was positive for G2 invasive ductal carcinoma ER/LA positive HER-2/andre negative. Bilateral breast MRI on 3920 identified a suspicious 1.7 cm lesion at 10:00 left breast otherwise unremarkable. Oncotype was performed which revealed a recurrence score of 28. She underwent neoadjuvant chemotherapy TC and completed 4 cycles and [id number]. On she had a left mastectomy pathology revealed residual multifocal invasive cancer largest measuring 9 mm and negative lymph nodes. She started adjuvant Arimidex she is also on Fosamax at this time. She did not have any radiation therapy. The patient does not feel any new lumps masses or nodules of concern. She was found to have persistent elevated total protein on a CMP which revealed elevated IgM Monoclonal protein. She is going to have a bone marrow biopsy. She is due for a right breast mammogram in July 2021. Note fromofe Rubin 05-20-21 reviewed Caffeine:none nicotine: none flavio-bromine: occasional hormones: none Family History: mother: lung cancer smoker paternal aunt: ? type father: prostate cancer brother: prostate ancer Hormonal History: menarche: 16 G0 menopause: 53 BCP: none hormones: none Surgical History: breast biopsy left mastectomy and SNB Medical History: shingles bladder infection monoclonal IMG elevation Social History: smoke: none alcohol: none drugs: none - Constitutional Constitutional: Denies chills, Denies fever - EENT Comment: wears glasses Ears: bilateral: tinnitus Ears, nose, mouth and throat: Denies headache, Denies sore throat - Breasts Breasts: bilateral: as per HPI - Cardiovascular Cardiovascular: Denies chest pain, Denies shortness of breath - Respiratory Respiratory: Denies cough - Gastrointestinal Gastrointestinal: Denies abdominal pain, Denies diarrhea, Denies nausea, Denies vomiting - Genitourinary (Female) Comment: UTI in recent past Genitourinary: Denies dysuria, Denies hematuria - Menstruation Menstruation: Reports postmenopausal - Musculoskeletal Comment: arthritis in hands - Integumentary Integumentary: Denies pruritus, Denies rash - Neurological Neurological: Denies numbness, Denies weakness - Psychiatric Psychiatric: Reports anxiety - Endocrine Endocrine: Denies fatigue, Denies weight change - Hematologic/Lymphatic Comment: low dose aspirin and vitamin E - Allergic/Immunologic Allergic/Immunologic: Reports as per HPI Objective - Vital Signs Vital signs: Vital Signs Temp 97.8 F 07/12/21 10:21 Pulse 78 07/12/21 10:21 Resp 18 07/12/21 10:21 BP 149/67 07/12/21 10:21 Pulse Ox Intake & Output 07/11/21 07/12/21 07/12/21 18:59 06:59 18:59 Weight 46.266 kg - Exam BMI 21.3 - Constitutional General appearance: Present: cooperative - EENT Eyes: Present: EOMI ENT: Present: hearing grossly normal - Neck Neck: Present: normal ROM - Respiratory Respiratory: bilateral: CTA - Cardiovascular Heart sounds: normal: S1, S2 - Integumentary Integumentary: Present: normal turgor - Musculoskeletal Musculoskeletal: Present: gait normal - Psychiatric Psychiatric: Present: A&O x's 3, appropriate affect, intact judgment & insight - Additional findings Additional findings: Breast Exam: BRA: 36A inspection: Right breast grade 3 ptosis, left chest wall incision no evidence of recurrence Palpation: Right breast: Ultimate positional exam no dominant masses or nodules of concern Right axilla: No adenopathy of concern Left chest wall: No evidence of recurrent cancer Left axilla: No adenopathy of concern Assessment and Plan Assessment: Impression: shingles bladder infection monoclonal Ig elevation left breast stage Ib invasive ductal cancer, no evidence or recurrence Plan: Patient is due for a right breast mammogram Elevated IgM bone marrow as per Dr. Rodriguez follow up after mammogram CC: Dr. Roberts
== END | disposition home or self-care (01) ==
LOC: WWCWWP 09:50
PROVIDERS: ATTEND Surgery
DX: Z53.9 Procedure and treatment not carried out, unspecified reason (principal)

== ENCOUNTER → 2021-08-07 | Outpatient (CLI) | payer MEDICARE ==
--- NOTE | 2021-08-12 12:26 | MM ---
Reason for exam: additional evaluation requested from prior study. Last mammogram was performed 7 months ago. History: Patient has history of breast cancer at age 74, history of other cancer, and is nulliparous. Mastectomy of the left breast, February 19, 2021. Malignant US biopsy breast VAD LT of the left breast, September 13, 2020. Malignant ultrasound-guided core biopsy of the left breast, July 2020. Benign excisional biopsy of the right breast, 2016. Benign excisional biopsy of the left breast. Taking antineoplastic for 3 months. Physical Findings: Nurse did not find any significant physical abnormalities on exam. MG 3D Diag Mammo W/Cad RT CC, MLO, and XCCL view(s) were taken of the right breast. Prior study comparison: January 16, 2021, left breast MG 3d diag mammo w/cad LT. September 13, 2020, left breast MG diagnostic mammo LT wo CAD. July 31, 2020, mammogram. July 18, 2020, mammogram. November 20, 2017, mammogram, performed at [facility]. May 22, 2017, mammogram, performed at [facility]. May 01, 2017, mammogram, performed at [facility]. April 03, 2017, mammogram, performed at [facility]. The breast tissue is heterogeneously dense. This may lower the sensitivity of mammography. Stable benign calcifications. There is no discrete abnormality. No significant new findings when compared with previous films. These results were verbally communicated with the patient and result sheet given to the patient on 08/07/21. ASSESSMENT: Benign, BI-RAD 2 RECOMMENDATION: Routine screening mammogram of the right breast in 1 year.
== END | disposition home or self-care (01) ==
LOC: RADMAMWWP 09:37
PROVIDERS: ATTEND Surgery
DX: Z85.3 Personal history of malignant neoplasm of breast (principal)
CPT/HCPCS: 77065; G0279; 77061

== ENCOUNTER → 2021-08-09 | Outpatient (CLI) | payer MEDICARE ==
[2021-08-09 11:49] VITALS: BP 132/74; PULSE 67; RESP 16; TEMP 98.5
== END | disposition home or self-care (01) ==
LOC: WWCWWP 11:21
PROVIDERS: ATTEND Surgery
DX: Z85.3 Personal history of malignant neoplasm of breast (principal)

== ENCOUNTER 2021-10-11 11:03 | Day surgery (SDC) | payer MEDICARE ==
[2021-10-09 13:35] VITALS: BMI 21.9
[~2021-10-11 11:03] MED LIST changes: -HEPARIN SODIUM,PORCINE/PF 5,000 UNIT/0.5 ML SYRINGE SQ PRN; -HYDROmorphone 0.5 MG/0.5 ML SYRINGE IVP PRN; -LIDOCAINE 1% (10MG/ML) FOR IV START INTRADERMA PRN; -ONDANSETRON 4 MG/2 ML VIAL IVP ONE; -Pre Op ABX Message 1 EACH MISC MISCELLANE ONE
[2021-10-11 11:47] VITALS: TEMP 97.5
[2021-10-11] MEDS ORDERED: LACTATED RINGERS 1,000 ML IV ONE (11:48)
[2021-10-11] MEDS ORDERED: KETOROLAC 15 MG/ML 1 ML VIAL ONE (12:06)
[2021-10-11] MEDS ORDERED: LIDOCAINE 2% INJ 20 MG/ML (2 ML VIAL) ONE (12:06)
[2021-10-11] MEDS ORDERED: fentaNYL (PF) 50 MCG/ML 2 ML AMP ONE (12:06)
[2021-10-11] MEDS ORDERED: PROPOFOL 10 MG/ML 20 ML VIAL IV ONE (12:06)
[2021-10-11 12:50] VITALS: RESP 16
[2021-10-11 13:11] LABS: Basophils % (A) 1 %; Eosinophils # (A) 0.1 k/uL (0-0.7); Eosinophils % (A) 2 %; HCT 35.7 % (34.0-46.0); HGB 11.9 gm/dL (11.4-16.0); Lymphocytes # (A) 1.3 k/uL (1.0-4.8); Lymphocytes % (A) 24 %; MCH 31.6 pg (25.0-35.0); MCHC 33.2 g/dL (31.0-37.0); Mean Platelet Volume 8.8; Monocytes # (A) 0.3 k/uL (0-1.0); Monocytes % (A) 6 %; Neutrophils # (A) 3.6 k/uL (1.3-7.7); Neutrophils % (A) 66 %; Platelet Count 245 k/uL (150-450); RBC 3.75 m/uL (3.80-5.40); RDW 12.5 % (11.5-15.5); Reticulocyte % 0.7 % (0.5-2.0); WBC 5.4 k/uL (3.8-10.6)
--- NOTE | 2021-10-11 13:13 | PCN ---
PROCEDURE NOTE SURGICAL PROCEDURE: DATE OF PROCEDURE: 10/11/2021 PROCEDURE: Bone marrow aspirate and biopsy. INDICATION: Possible Waldenstrom macroglobulinemia. PROCEDURE DESCRIPTION: After obtaining consent from the patient, the procedure was performed in the endoscopy suite under general anesthesia performed by the anesthesia team. The patient was put in the left lateral decubitus position. The right posterior superior iliac crest was localized. Skin was prepared with ChloraPrep. All sterile procedures were followed. Two mL of 2% xylocaine was used for local anesthetic. Monoject needle was inserted; about 50 mL aspirate and 1 cm core biopsy was obtained without any difficulties. Pressure was applied afterwards. There was negligible blood loss. The patient tolerated the procedure very well without any immediate complications. MMODL / IJN: [id number] /
[2021-10-11 13:57] VITALS: BP 145/70; PULSE 66
== END 2021-10-11 14:07 | disposition home or self-care (01) ==
LOC: OR 11:03
PROVIDERS: ATTEND Internal Medicine Hematology & Oncology
DX: C50.212 Malignant neoplasm of upper-inner quadrant of left female breast (principal); Z17.0 Estrogen receptor positive status [ER+]; M81.0 Age-related osteoporosis without current pathological fracture; Z90.12 Acquired absence of left breast and nipple; Z79.899 Other long term (current) drug therapy; Z88.2 Allergy status to sulfonamides; Z80.42 Family history of malignant neoplasm of prostate; Z80.1 Family history of malignant neoplasm of trachea, bronchus and lung
CPT/HCPCS: 85025; 85045; 38222; J3010; J1885; J2704; J2001

== ENCOUNTER → 2022-04-04 | Outpatient (CLI) | payer MEDICARE ==
--- NOTE | 2022-04-04 14:45 | P.PN ---
Subjective Progress Note Date: 04/04/22 Principal diagnosis: left breast invasive ductal cancer left breast invasive ductal cancer Stage IB [id number]-G2 Rossi is a 76 -year-old white female who initially presented with a palpable mass in her left breast. She had noted this around March 2020. Diagnostic mammograms on July 2020 revealed a suspicious lesion in the upper inner quadrant of the left breast posterior depth. Ultrasound identified a 2.2 x 2.5 cm mass. On core biopsy of the left breast was positive for G2 invasive ductal carcinoma ER/IA positive HER-2/andre negative. Bilateral breast MRI on 3920 identified a suspicious 1.7 cm lesion at 10:00 left breast otherwise unrem arkable. Oncotype was performed which revealed a recurrence score of 28. She underwent neoadjuvant chemotherapy TC and completed 4 cycles and 37524. On she had a left mastectomy pathology revealed residual multifocal invasive cancer largest measuring 9 mm and negative lymph nodes. She started adjuvant Arimidex she is also on Fosamax at this time. She did not have any radiation therapy. The patient does not feel any new lumps masses or nodules of concern. She was found to have persistent elevated total protein on a CMP which revealed elevated IgM Monoclonal protein. A bone biopsy was done on 10-11-21 which was + for 10% monoclonal B cell, it was noted to have Waldenstrom macroglobulinemia. She is not having any treatment for this. She is not concerned about any lumps masses or nodules in the right breast on the left chest wall. She had a right 08-07-21 which was BIRAD 2. Note from 10-28-21 Dr. Rubin reviewed Caffeine:none nicotine: none flavio-bromine: occasional hormones: none Family History: mother: lung cancer smoker paternal aunt: ? type father: prostate cancer brother: prostate ancer Hormonal History: menarche: 16 G0 menopause: 53 BCP: none hormones: none Surgical History: breast biopsy left mastectomy and SNB bone biopsy Medical History: shingles bladder infection monoclonal IMG elevation Social History: smoke: none alcohol: none drugs: none - Constitutional Constitutional: Denies chills, Denies fever - EENT Comment: wears glasses Ears: bilateral: tinnitus Ears, nose, mouth and throat: Denies headache, Denies sore throat - Breasts Breasts: bilateral: as per HPI - Cardiovascular Cardiovascular: Denies chest pain, Denies shortness of breath - Respiratory Respiratory: Denies cough - Gastrointestinal Gastrointestinal: Denies abdominal pain, Denies diarrhea, Denies nausea, Denies vomiting - Genitourinary (Female) Comment: UTI in recent past Genitourinary: Denies dysuria, Denies hematuria - Menstruation Menstruation: Reports postmenopausal - Musculoskeletal Comment: arthritis in hands - Integumentary Integumentary: Denies pruritus, Denies rash - Neurological Neurological: Denies numbness, Denies weakness - Psychiatric Psychiatric: Reports anxiety - Endocrine Endocrine: Denies fatigue, Denies weight change - Hematologic/Lymphatic Comment: low dose aspirin and vitamin E - Allergic/Immunologic Allergic/Immunologic: Reports as per HPI Objective - Constitutional General appearance: Present: cooperative - EENT Eyes: Present: EOMI ENT: Present: hearing grossly normal - Neck Neck: Present: normal ROM - Respiratory Respiratory: bilateral: CTA - Cardiovascular Rhythm: regular Heart sounds: normal: S1, S2 - Gastrointestinal General gastrointestinal: Present: soft - Integumentary Integumentary: Present: normal turgor - Musculoskeletal Musculoskeletal: Present: gait normal - Psychiatric Psychiatric: Present: A&O x's 3, appropriate affect, intact judgment & insight - Additional findings Additional findings: Breast Exam: BRA: 36A inspection: Right breast grade 3 ptosis, left chest wall incision no evidence of recurrence Palpation: Right breast: multi positional exam no dominant masses or nodules of concern Right axilla: No adenopathy of concern Left chest wall: No evidence of recurrent cancer Left axilla: No adenopathy of concern Assessment and Plan Assessment: Impression: Left breast invasive ductal carcinoma, patient's completed 4 cycles of TC, she underwent a left breast mastectomy and sentinel node biopsy, no evidence of recurrent disease Status post bone marrow biopsy 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 Roberts
== END | disposition home or self-care (01) ==
LOC: WWCWWP 13:17
PROVIDERS: ATTEND Surgery
DX: Z85.3 Personal history of malignant neoplasm of breast (principal)

== ENCOUNTER → 2022-08-29 | Outpatient (CLI) | payer MEDICARE ==
--- NOTE | 2022-08-29 14:44 | MM ---
Reason for Exam: Additional evaluation requested from prior study. Last mammogram was performed 1 year(s) and 1 month(s) ago. Patient History: Menarche at age 15. Patient has no children. Breast cancer, left, age 74. Previous chemotherapy at age 74. 07/2020, Malignant Ultrasound-Guided Core Biopsy on the left side. 02/19/2021, Mastectomy on the Left side. Benign Excisional Biopsy on the left side. 2016, Benign Excisional Biopsy on the right side. 09/13/2020, Malignant Core Biopsy on the left side. Prior Study Comparison: 09/13/2020 Left Diagnostic Mammogram, [facility]. 01/16/2021 Left Diagnostic Mammogram, [facility]. 08/07/2021 Right Diagnostic Mammogram, [facility]. Tissue Density: Right: The breast tissue is heterogeneously dense. This may lower the sensitivity of mammography. Findings: Analyzed By CAD. Stable benign calcifications. No new significant finding from prior exam. Biopsy clip demonstrated within the right breast. Overall Assessment: Benign, BI-RAD 2 Management: Screening Mammogram of the right breast in 1 year. A clinical breast exam by your physician is recommended on an annual basis and results should be correlated with mammographic findings. This exam should not preclude additional follow-up of suspicious palpable abnormalities. Results were given to the patient verbally at the time of exam. Electronically signed and approved by: Han Dewitt D.O.
== END | disposition home or self-care (01) ==
LOC: RADMAMWWP 14:15
PROVIDERS: ATTEND Surgery
DX: R92.2 Inconclusive mammogram (principal); Z85.3 Personal history of malignant neoplasm of breast
CPT/HCPCS: 77065; G0279; 77061

== ENCOUNTER → 2022-09-19 | Outpatient (CLI) | payer MEDICARE ==
--- NOTE | 2022-09-19 14:40 | P.PN ---
Subjective Progress Note Date: 09/19/22 Principal diagnosis: left breast invasive ductal cancer Stage IB [id number]+Her2-G2, 202004-04-22 left breast invasive ductal cancer Stage IB [id number]+Her2-G2 Rossi is a 76 -year-old white female who initially presented with a palpable mass in her left breast. She had noted this around March 2020. Diagnostic mammograms on July 2020 revealed a suspicious lesion in the upper inner quadrant of the left breast posterior depth. Ultrasound identified a 2.2 x 2.5 cm mass. On 2620 core biopsy of the left breast was positive for G2 invasive ductal carcinoma ER/CO positive HER-2/andre negative. Bilateral breast MRI on 3920 identified a suspicious 1.7 cm lesion at 10:00 left breast otherwise unremarkable. Oncotype was performed which revealed a recurrence score of 28. She underwent neoadjuvant chemotherapy TC and completed 4 cycles and 48998. On 9720 she had a left mastectomy pathology revealed residual multifocal invasive cancer largest measuring 9 mm and negative lymph nodes. She started adjuvant Arimidex she is also on Fosamax at this time. She did not have any radiation therapy. The patient does not feel any new lumps masses or nodules of concern. She was found to have persistent elevated total protein on a CMP which revealed elevated IgM Monoclonal protein. A bone biopsy was done on 10-11-21 which was + for 10% monoclonal B cell, it was noted to have Waldenstrom macroglobulinemia. She is not having any treatment for this. She is not concerned about any lumps masses or nodules in the right breast on the left chest wall. She had a right 08-07-21 which was BIRAD 2. Note from 10-28-21 Dr. Rubin reviewed 09-19-22 Right breast mammogram 99762 BIRADS 2. She is not complaining of any new lumps, masses or nodules of concern in her breast. She recently had a CT scan showing nodules in her lower left lung. Patient continues on anestrazole. Caffeine:none nicotine: none flavio-bromine: occasional hormones: none Family History: mother: lung cancer smoker paternal aunt: ? type father: prostate cancer brother: prostate ancer Hormonal History: menarche: 16 G0 menopause: 53 BCP: none hormones: none Surgical History: breast biopsy left mastectomy and SNB bone biopsy Medical History: shingles bladder infection monoclonal IMG elevation treated for tachycardia summer 2021 Social History: smoke: none alcohol: none drugs: none - Constitutional Constitutional: Denies chills, Denies fever - EENT Comment: wears glasses Ears: bilateral: tinnitus Ears, nose, mouth and throat: Denies headache, Denies sore throat - Breasts Breasts: bilateral: as per HPI - Cardiovascular Cardiovascular: Denies chest pain, Denies shortness of breath - Respiratory Respiratory: Denies cough - Gastrointestinal Gastrointestinal: Denies abdominal pain, Denies diarrhea, Denies nausea, Denies vomiting - Genitourinary (Female) Comment: UTI in recent past Genitourinary: Denies dysuria, Denies hematuria - Menstruation Menstruation: Reports postmenopausal - Musculoskeletal Comment: arthritis in hands - Integumentary Integumentary: Denies pruritus, Denies rash - Neurological Neurological: Denies numbness, Denies weakness - Psychiatric Psychiatric: Reports anxiety - Endocrine Endocrine: Denies fatigue, Denies weight change - Hematologic/Lymphatic Comment: low dose aspirin and vitamin E - Allergic/Immunologic Allergic/Immunologic: Reports as per HPI Objective - Constitutional General appearance: Present: cooperative - EENT Eyes: Present: EOMI ENT: Present: hearing grossly normal - Neck Neck: Present: normal ROM - Respiratory Respiratory: bilateral: CTA - Cardiovascular Rhythm: regular Heart sounds: normal: S1, S2 - Gastrointestinal General gastrointestinal: Present: soft - Integumentary Integumentary: Present: normal turgor - Musculoskeletal Musculoskeletal: Present: gait normal - Psychiatric Psychiatric: Present: A&O x's 3, appropriate affect, intact judgment & insight - Additional findings Additional findings: Breast Exam: BRA: 36A inspection: Right breast grade 3 ptosis, left chest wall incision no evidence of recurrence Palpation: Right breast: multi positional exam no dominant masses or nodules of concern Right axilla: No adenopathy of concern Left chest wall: No evidence of recurrent cancer Left axilla: No adenopathy of concern Assessment and Plan Assessment: mpression: Left breast invasive ductal carcinoma, patient's completed 4 cycles of TC, she underwent a left breast mastectomy and sentinel node biopsy, no evidence of recurrent disease Status post bone marrow biopsy 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 Roberts
[2022-09-19 15:06] VITALS: BP 153/66; PULSE 80; RESP 16; TEMP 97.8
== END | disposition home or self-care (01) ==
LOC: WWCWWP 14:21
PROVIDERS: ATTEND Surgery
DX: C50.912 Malignant neoplasm of unspecified site of left female breast (principal); C88.0 Waldenstrom macroglobulinemia; R76.8 Other specified abnormal immunological findings in serum; B02.9 Zoster without complications; N30.90 Cystitis, unspecified without hematuria; Z80.1 Family history of malignant neoplasm of trachea, bronchus and lung; Z90.12 Acquired absence of left breast and nipple; Z88.2 Allergy status to sulfonamides

== ENCOUNTER → 2024-01-11 | Outpatient (CLI) | payer MEDICARE ==
--- NOTE | 2024-02-09 14:12 | MM ---
Reason for Exam: Hx of breast cancer, conservation therapy. Last mammogram was performed 1 year(s) and 4 month(s) ago. Patient History: Menarche at age 15. Patient has no children. Postmenopausal. Breast cancer, left, age 74. Previous chemotherapy at age 74. 07/2020, Malignant Ultrasound-Guided Core Biopsy on the left side. 02/19/2021, Mastectomy on the Left side. Benign Excisional Biopsy on the left side. 2016, Benign Excisional Biopsy on the right side. 09/13/2020, Malignant Core Biopsy on the left side. Prior Study Comparison: 01/16/2021 Left Diagnostic Mammogram, [facility]. 08/07/2021 Right Diagnostic Mammogram, [facility]. 08/29/2022 Right MG 3D diag mammo w/cad RT, [facility]. Tissue Density: Right: The breasts are heterogeneously dense, which may obscure small masses. Findings: Analyzed By CAD. No evidence of mass or distortion. No suspicious microcalcifications noted. Overall Assessment: Benign, BI-RAD 2 Management: Diagnostic Mammogram of the right breast in 1 year. Results were given to the patient verbally at the time of exam. Patient should continue monthly self-breast exams. A clinical breast exam by your physician is recommended on an annual basis. This exam should not preclude additional follow-up of suspicious palpable abnormalities. Note on Gay scores and lifetime risk: 1. A Gay score greater than 3% is considered moderate risk. If this is the case, consider specialist referral to assess eligibility for a risk reducing agent. 2. If overall lifetime risk for the development of breast cancer is 20% or higher, the patient may qualify for future screening with alternating mammogram and breast MRI. Electronically signed and approved by: Anthony Mendoza M.D. Radiologis
== END | disposition home or self-care (01) ==
LOC: RADMAMWWP 14:29
PROVIDERS: ATTEND Surgery
DX: C50.912 Malignant neoplasm of unspecified site of left female breast (principal); R92.333 Mammographic heterogeneous density, bilateral breasts; Z85.3 Personal history of malignant neoplasm of breast; Z78.0 Asymptomatic menopausal state
CPT/HCPCS: 77065; G0279; 77061

== ENCOUNTER → 2024-12-19 | Outpatient (CLI) | payer MEDICARE ==
[2024-12-19 12:59] VITALS: BP 159/58; PULSE 69; RESP 16; TEMP 97.9
[2024-12-19] MEDS: DENOSUMAB 60 MG/ML 1 ML SYRINGE SQ NR (13:00)
== END ==
LOC: PROCWHC3 12:41
PROVIDERS: ATTEND Internal Medicine Hematology & Oncology
DX: M81.0 Age-related osteoporosis without current pathological fracture (principal); C50.212 Malignant neoplasm of upper-inner quadrant of left female breast
CPT/HCPCS: 96372; J0897